=== PATIENT | female | born 1955 | race Two or more races ===

== ENCOUNTER 2024-03-01 09:41 | Inpatient (IN) | payer OTHER, MEDICAID ==
[~2024-03-01] VITALS: Ht 154.9 cm; Wt 63.1 kg
[2024-03-01 11:14] LABS: Alanine Aminotransferase 16 U/L (7-40); Alkaline Phosphatase 63 U/L (46-116); Anion Gap 7 (5-15); Aspartate Aminotransferase 48 U/L (13-40); Bilirubin, Total 0.3 mg/dL (0.2-1.0); Blood Urea Nitrogen 15 mg/dL (9-23); Calcium 9.6 mg/dL (8.7-10.4); Carbon Dioxide 29 mmol/L (20-31); Chloride 101 mmol/L (98-107); Glucose 100 mg/dL (74-106); Potassium 4.1 mmol/L (3.5-5.1); Sodium 137 mmol/L (136-145); Total Protein 6.4 g/dL (5.7-8.2)
[2024-03-01] MEDS ORDERED: HYDROcodone-ACET 5/325MG TAB PO PRN (18:45)
[2024-03-01] MEDS ORDERED: ONDANSETRON HCL 4 MG/2 ML VIAL IV PRN (18:45)
[2024-03-01] MEDS ORDERED: NITROGLYCERIN 0.4 MG SL TAB SL PRN (18:45)
[2024-03-01] MEDS: levoFLOXacin 500MG 100 ML IV ONE (19:08)
[2024-03-01 20:21] LABS: INR 1.12 (0.9-1.15); Prothrombin Time 11.8 sec (9.3-11.8)
[2024-03-02 00:28] LABS: Body Fluid Red Blood Cells 3141 CUMM (0-2000); Body Fluid White Blood Cells 375 CUMM (0-200)
[2024-03-02 00:29] LABS: Body Fluid Polymorphonuclear 9 % (0-25)
[2024-03-02 01:48] VITALS: PULSE 90; RESP 14; O2SAT 96
[2024-03-02 04:27] LABS: Basophils # (auto) 0 10 ^3/uL (0-0.2); Basophils % (auto) 0.7 % (0.0-2.0); Eosinophils # (auto) 0.1 10 ^3/uL (0-0.8); Eosinophils % (auto) 1.9 % (0.0-7.0); Hematocrit 37.5 % (36.0-46.0); Hemoglobin 12.9 g/dL (12.2-16.2); Lymphocytes # (auto) 1.1 10 ^3/uL (0.4-5.4); Lymphocytes % (auto) 16.8 % (10.0-50.0); Mean Corpuscular Hemoglobin 31.9 pg (28.0-32.0); Mean Corpuscular Hgb Conc. 34.4 g/dL (32.0-36.0); Mean Corpuscular Volume 92.8 fL (80.0-100.0); Monocytes # (auto) 0.6 10 ^3/uL (0-1.3); Monocytes % (auto) 9.8 % (0.0-12.0); Neutrophils # (auto) 4.6 10 ^3/uL (1.6-8.6); Neutrophils % (auto) 70.8 % (37.0-80.0); Nucleated Red Blood Cells % 0.1 %; Platelet Count (auto) 299 10^3/uL (140-450); Red Blood Cells 4.04 10^6/uL (4.0-5.20); Red Cell Distribution Width 14.6 % (11.8-14.3); White Blood Cell 6.4 10^3/uL (4.4-10.8)
[2024-03-02 04:44] LABS: Albumin 3.5 g/dL (3.2-4.8); Alkaline Phosphatase 53 U/L (46-116); Anion Gap 10 (5-15); Aspartate Aminotransferase 32 U/L (13-40); BUN/Creatinine Ratio 20.7 (10.0-20.0); Bilirubin, Total 0.4 mg/dL (0.2-1.0); Blood Urea Nitrogen 12 mg/dL (9-23); Calcium 9.4 mg/dL (8.7-10.4); Carbon Dioxide 27 mmol/L (20-31); Chloride 101 mmol/L (98-107); Glucose 98 mg/dL (74-106); Potassium 3.7 mmol/L (3.5-5.1); Sodium 138 mmol/L (136-145); Total Protein 5.8 g/dL (5.7-8.2)
[2024-03-02 04:53] LABS: Alanine Aminotransferase 9 U/L (7-40)
[2024-03-02] MEDS: levoFLOXacin 500MG 100 ML IV SCH (10:06)
[2024-03-02 12:58] VITALS: BP 125/71; PULSE 98; RESP 18; TEMP 98.2; O2SAT 94
[2024-03-02 13:08] VITALS: BP 125/71; PULSE 98; RESP 18; TEMP 98.2; O2SAT 94
[2024-03-02] MEDS ORDERED: LEVO25TA6 PO (13:55)
[2024-03-02 14:19] LABS: Urine Bacteria None Seen /hpf (None Seen)
[2024-03-02 14:39] LABS: Urine Blood 1+ /uL (Negative); Urine Budding Yeast OCCASIONAL /hpf (None Seen); Urine Clarity Clear (Clear); Urine Color Light-Yellow (Yellow); Urine Mucus FEW (None Seen); Urine Protein, UAD Negative (Negative); Urine Specific Gravity 1.017 (1.001-1.035); Urine Urobilinogen Normal (Negative); Urine WBC 39 /hpf (0 - 5)
[2024-03-02 17:00] VITALS: BP 93/50; PULSE 99; RESP 16; TEMP 98.2; O2SAT 93
[2024-03-02 20:00] VITALS: RESP 16
[2024-03-02 21:00] VITALS: BP 116/66; PULSE 94; RESP 16; TEMP 98.2; O2SAT 92
[2024-03-03] VITALS (8 sets, daily range): BP systolic 107–152; BP diastolic 59–77; PULSE 83–95; RESP 13–19; TEMP 97.1–98.3; O2SAT 93–95
[2024-03-03] MEDS: PIPERACILLIN-TAZOB 3.375GM 100 ML IV SCH (01:26)
[2024-03-03 14:06] LABS: Protein, Body Fluid 4.1 g/dL (.)
[2024-03-04 00:35] VITALS: BP 127/73; PULSE 86; RESP 13; TEMP 97; O2SAT 95
[2024-03-04 04:56] VITALS: BP 135/79; PULSE 93; RESP 13; TEMP 98.3; O2SAT 96
[2024-03-04 08:00] VITALS: RESP 16
[2024-03-04 09:00] VITALS: BP 121/62; PULSE 92; RESP 16; TEMP 97.6; O2SAT 96
[2024-03-04] MEDS: DOCUSATE SOD 100 MG CAP PO PRN (11:49)
[2024-03-04] MEDS ORDERED: LEVO500T91 PO (12:44)
[2024-03-04] MEDS ORDERED: ALBUAER3 IN (12:44)
[2024-03-04 13:00] VITALS: BP 123/83; PULSE 90; RESP 18; TEMP 98.1; O2SAT 100
== END 2024-03-04 16:30 | disposition home or self-care (01) | DRG 871 ==
LOC: ER 09:41 → OVERFLOW 18:42 → WEST WING 03-02 13:01
PROVIDERS: ADMIT Nurse Practitioner Family; ATTEND Family Medicine
PROC: 0W993ZZ Drainage of Right Pleural Cavity, Percutaneous Approach (ICD-10-PCS; principal; 2024-03-01)
DX: A41.9 Sepsis, unspecified organism (principal); J15.69 Pneumonia due to other Gram-negative bacteria; J18.9 Pneumonia, unspecified organism; E44.0 Moderate protein-calorie malnutrition; J98.11 Atelectasis; J91.8 Pleural effusion in other conditions classified elsewhere; N39.0 Urinary tract infection, site not specified; C50.919 Malignant neoplasm of unspecified site of unspecified female breast; E03.9 Hypothyroidism, unspecified; I10 Essential (primary) hypertension; Z90.710 Acquired absence of both cervix and uterus; Z90.49 Acquired absence of other specified parts of digestive tract; Z88.5 Allergy status to narcotic agent; Z91.041 Radiographic dye allergy status; Z68.26 Body mass index [BMI] 26.0-26.9, adult
CPT/HCPCS: 32555; 36415; 71045; 71046; 80053; 81001; 83880; 83986; 84484; 85025; 85610; 87040; 87081; 87086; 87205; 89051; 93005; 96365; 96366; 99291; G0378; J1956; J2543